=== PATIENT | female | born 1995 | race Asian ===

== ENCOUNTER 2022-09-19 12:31 | Emergency (ER) | payer OTHER ==
[~2022-09-19] VITALS: Ht 170.2 cm; Wt 83.9 kg
[2022-09-19 12:35] VITALS: BP 130/73; TEMP 97.2
[2022-09-19 13:02] LABS: PLATELET COUNT 593 K/uL (152-353)
[2022-09-19 13:12] LABS: POTASSIUM 3.9 mmol/L (3.6-5.2)
== END 2022-09-19 15:30 | disposition home or self-care (01) ==
LOC: ED 12:31
PROVIDERS: Emergency Medicine Emergency Medical Services
DX: N13.2 Hydronephrosis with renal and ureteral calculous obstruction (principal); N39.0 Urinary tract infection, site not specified
CPT/HCPCS: 36415; 80053; 81000; 81025; 82150; 83690; 85027; 87086; 87088; 96361; 96365; 96375; 99284; J0696; J1885; J2270; J2405; Q9963